=== PATIENT | female | born 1960 | race Two or more races ===

== ENCOUNTER 2018-12-07 12:09 | Emergency (ER) | payer MEDICAID, OTHER ==
[~2018-12-07] VITALS: Ht 167.6 cm; Wt 61.7 kg
[2018-12-07 12:29] VITALS: BP 122/72
[2018-12-07] MEDS ORDERED: SODIUM CHLORIDE 0.9% 1,000 ML IV ONE (12:29)
[2018-12-07] MEDS ORDERED: ASPirin 81 mg TAB PO ONE (12:30)
[2018-12-07 13:57] LABS: Hematocrit 33.9 % (36.0-46.0); Hemoglobin 11.1 g/dL (12.2-16.2); Mean Corpuscular Hemoglobin 29.6 pg (28.0-32.0); Mean Corpuscular Hgb Conc. 32.7 g/dL (32.0-36.0); Mean Corpuscular Volume 90.4 fL (80.0-100.0); Platelet Count (auto) 115 10^3/uL (140-450); Red Blood Cells 3.75 10^6/uL (4.0-5.20); Red Cell Distribution Width 13.5 % (11.8-14.3); White Blood Cell 3.1 10^3/uL (4.4-10.8)
[2018-12-07 14:01] LABS: Band Neutrophils % (manual) 0; Basophils % (manual) 0 (0.0-2.0); Blast Cells 0; Metamyelocytes % 0; Myelocytes % 0; Promyelocytes % 0; Reactive Lymphocytes 0
[2018-12-07 14:10] LABS: Albumin 3.4 g/dL (3.4-5.0); Anion Gap 5 (5-15); BUN/Creatinine Ratio 18.2; Blood Urea Nitrogen 12 mg/dL (7-18); Calcium 8.3 mg/dL (8.5-10.1); Carbon Dioxide 24 mmol/L (21-32); Chloride 110 mmol/L (98-107); GFR African American 119 mL/min; GFR Non-African American 98 mL/min; Glucose 77 mg/dL (74-106); Potassium 4.7 mmol/L (3.5-5.1); Sodium 139 mmol/L (136-145)
[2018-12-07 14:11] LABS: INR 0.93 (0.9-1.15); Partial Thromboplastin Time 24.5 sec (23.78-33.04)
[2018-12-07 14:19] LABS: Alanine Aminotransferase 16 U/L (13-56); Alkaline Phosphatase 82 U/L (45-117); Aspartate Aminotransferase 10 U/L (15-37); Bilirubin, Total 0.1 mg/dL (0.2-1.0); Total Protein 6.8 g/dL (6.4-8.2)
[2018-12-07 15:29] LABS: Eosinophils % (manual) 23 (0-7); Lymphocytes % (manual) 32 (10.0-50.0); Monocytes % (manual) 20 (0-12)
== END 2018-12-07 15:37 | disposition left against medical advice (07) ==
LOC: EDBD 12:09 → ER 12:18
DX: I24.9 Acute ischemic heart disease, unspecified (principal)
CPT/HCPCS: 36415; 71045; 80053; 84484; 85007; 85027; 85610; 85730; 93005